=== PATIENT | female | born 1995 | race Caucasian/White ===

== ENCOUNTER 2018-09-11 09:51 | Emergency (ER) | payer BC ==
[~2018-09-11] VITALS: Ht 172.7 cm; Wt 96.6 kg
[2018-09-11 09:54] VITALS: Ht 172.7 cm; Wt 96.6 kg
[2018-09-11] MEDS ORDERED: DIPHENHYDRAMINE 50 MG INJ IV STA (12:17)
[2018-09-11] MEDS ORDERED: METOCLOPRAMIDE 10 MG INJ IV STA (12:17)
[2018-09-11] MEDS ORDERED: KETOROLAC 30 MG INJ IV STA (12:17)
[2018-09-11] MEDS ORDERED: SOD CHLORIDE 0.9% 1,000 ML IV STA (12:17)
[2018-09-11] MEDS ORDERED: BUTA1CAP38 PO (13:58)
[2018-09-11] MEDS ORDERED: ACET500C5 PO (13:58)
[2018-09-11] MEDS ORDERED: ONDA4TAB14 PO (13:58)
[2018-09-11] MEDS ORDERED: IBUP800T48 PO (13:58)
--- NOTE | 2018-09-11 14:19 | ERD ---
ER Documentation Chief Complaint Chief Complaint MIGRAINE HEADACHE X 4 DAYS HPI This is a 23-year-old female patient who presents to the emergency room with new onset migraine. +Photophobia, + phonophobia, +nausea, throbbing pain starts at bilateral temples and radiates to the top of the head. States she had ear s urgery on left ear on July 07, 2018 and 2 days ago was at her ENT who did some work on her ear which may have provoked migraine. No sick contacts, no recent travel or prolonged immobilization,+nexplanon, nonsmoker. Clear speech, cooperative, moves extremities equally without weakness. ROS All systems reviewed and are negative except as per history of present illness. Medications Home Meds Active Scripts Ncgkbcrcxi-Wkovullgzfuma-Fqgibeik* (Fioricet*) 50-300-40 Mg Capsule, 1 CAP PO Q4H PRN for MIGRAINE for 7 Days, #14 CAP Prov:BELKIS GOINS NP 09/11/18 Ondansetron (Ondansetron Odt) 4 Mg Tab.rapdis, 4 MG PO Q6H PRN for NAUSEA AND/OR VOMITING, #10 TAB Prov:BELKIS GOINS NP 09/11/18 Acetaminophen* (Tylophen*) 500 Mg Capsule, 2 CAP PO Q8H PRN for PAIN AND OR ELEVATED TEMP, #20 CAP Prov:BELKIS GOINS NP 09/11/18 Ibuprofen* (Motrin*) 800 Mg Tab, 800 MG PO Q6, #30 TAB Prov:BELKIS GOINS NP 09/11/18 Allergies Allergies: Coded Allergies: cefaclor (Verified Allergy, Intermediate, 09/11/18) PMhx/Soc History of Surgery: No Anesthesia Reaction: No Hx Neurological Disorder: No Hx Respiratory Disorders: No Hx Cardiac Disorders: No Hx Psychiatric Problems: No Hx Miscellaneous Medical Probl: Yes (MIGRAINE) Hx Alcohol Use: No Hx Substance Use: Yes (MARIJUANA) Hx Tobacco Use: No Physical Exam Vitals Vital Signs Date Temp Pulse Resp B/P (MAP) Pulse Ox O2 O2 Flow FiO2 Time Delivery Rate 09/11/18 98.0 51 16 110/74 100 Room Air 14:24 (86) 09/11/18 97.8 65 18 121/58 100 09:54 (79) Physical Exam Const: No acute distress Head: Atraumatic Eyes: Normal Conjunctiva, PERRL, EOMI ENT: Normal External Ears, Right TM clear, Left TM with dried blood from 12-5 'oclock. No nasal discharge, pharynx pink, moist, no exudate, no petechiae. Neck: Full range of motion. No meningismus. No lymphadenopathy or thyromegaly. Resp: Clear to auscultation bilaterally Cardio: Regular rate and rhythm, no murmurs Abd: Soft, non tender, non distended. Normal bowel sounds Skin: No petechiae or rashes, normothermic Back: No midline or flank tenderness Ext: No cyanosis, or edema Neur: Awake and alert, CNII-XII intact, clear speech, no pronator drift, normal [id number], steady gait Psych: Normal Mood and Affect Results 24 hrs Laboratory Tests Test 09/11/18 12:41 09/11/18 12:48 POC Beta HCG, Qualitative NEGATIVE Bedside Urine pH (LAB) 8.5 Bedside Urine Protein (LAB) Negative Bedside Urine Glucose (UA) Negative Bedside Urine Ketones (LAB) Negative Bedside Urine Blood Negative Bedside Urine Nitrite (LAB) Negative Bedside Urine Leukocyte Esterase (L Negative Current Medications Medications Dose Sig/Dory Start Time Status Last (Trade) Ordered Route PRN Stop Time Admin Dose Reason Admin Sodium 1,000 ml @ Q1H STAT 09/11/18 DC 09/11/18 Chloride 1,000 mls/hr IV 12:17 12:56 09/11/18 13:16 10 mg ONCE STAT 09/11/18 DC 09/11/18 Metoclopramid IV 12:17 12:56 e HCl 09/11/18 12:26 (Reglan) Ketorolac 30 mg ONCE STAT 09/11/18 DC 09/11/18 Tromethamine IV 12:17 12:56 (Toradol) 09/11/18 12:26 25 mg ONCE STAT 09/11/18 DC 09/11/18 Diphenhydrami IV 12:17 12:56 ne HCl 09/11/18 12:26 (Benadryl) Procedures/MDM This is a 23-year-old female patient who presents to the emergency room with complaint of migraine headache. ED COURSE: The patient was stable throughout ED course. DIAGNOSTIC IMAGING: Not indicated, no neuro deficits PROCEDURES: None. MEDICATIONS GIVEN: NS, Toradol, Reglan, Benadryl Patient tolerated medication well with no adverse reactions. Patient reported improvement in pain, nausea, resolution of photophobia. MDM: The patient was well-appearing with VSS and without neurological deficits at time of reevaluation and discharge. Clinical and diagnostic exam not suggestive of infection, intracranial process, SAH, SDH, neoplasm, meningitis, encephalitis, aneurysm, thrombus, temporal arteritis, sinusitis. The patient has been provided with instructions on self-care including use of analgesia, reducing triggers, and need for close follow-up with primary care physician within 1-2 days for reevaluation. The patient has been instructed to return immediately for worsening symptoms, change in pattern of current symptoms, or other acute problems. DISPOSITION: The patient has been discharge home to follow-up with community physician. Departure Diagnosis: Primary Impression: Migraine headache Migraine type: without aura Status migrainosus presence: without status migrainosus Intractability: not intractable Qualified Codes: G43.009 - Migraine without aura, not intractable, without status migrainosus Condition: Stable Patient Instructions: Migraine Headache: Stages and Treatment Referrals: [facility] YOU HAVE RECEIVED A MEDICAL SCREENING EXAM AND THE RESULTS INDICATE THAT YOU DO NOT HAVE A CONDITION THAT REQUIRES URGENT TREATMENT IN THE EMERGENCY DEPARTMENT. FURTHER EVALUATION AND TREATMENT OF YOUR CONDITION CAN WAIT UNTIL YOU ARE SEEN IN YOUR DOCTORS OFFICE WITHIN THE NEXT 1-2 DAYS. IT IS YOUR RESPONSIBILITY TO MAKE AN APPOINTMENT FOR FOLOW-UP CARE. IF YOU HAVE A PRIMARY DOCTOR --you should call your primary doctor and schedule an appointment IF YOU DO NOT HAVE A PRIMARY DOCTOR YOU CAN CALL OUR PHYSICIAN REFERRAL HOTLINE AT IF YOU CAN NOT AFFORD TO SEE A PHYSICIAN YOU CAN CHOSE FROM THE FOLLOWING [facility] [address] [facility] [place] [address] [facility]. [facility] [address] [facility] [address] [facility] [address] [facility]. [facility]. [address] Additional Instructions: Thank you very much for allowing us to participate in your care. Your health and safety is our top priority at [facility]. Call your primary care doctor TOMORROW for an appointment during the next 2-4 days and bring all the information and medications prescribed. Have prescriptions filled and follow precisely the directions on the label. If the symptoms get worse and your provider is unavailable, return to the Emergency Department immediately. INCREASE HYDRATION TO 1-2 L/DAY, AVOID HEADACHE TRIGGERS SUCH SMOKE, STRESS, ALCOHOL USE IBUPROFEN AND TYLENOL FIRST CHOICE FOR HEADACHE, USE IMMITREX AT ONSET OF HEADACHE, USE FIORICET IF INTERVENTIONS DO NOT WORK- USE CAUTION, FIORICET WILL MAKE YOU DROWSY USE ZOFRAN FOR NAUSEA FOLLOW-UP WITH YOUR DOCTOR TO DISCUSS THIS PLAN OF CARE RETURN TO THE ER IMMEDIATELY WITH WORSENING OR CHANING SYMPTOMS INCLUDING PROJECTILE VOMITING, FEVER, VISUAL DISTURBANCE BELKIS GOINS NP September 11, 2018 14:19
[2018-09-11 14:24] VITALS: BP 110/74; PULSE 51; RESP 16
== END 2018-09-11 14:26 | disposition home or self-care (01) ==
LOC: FTE 09:51
DX: G43.009 Migraine without aura, not intractable, without status migrainosus (principal)
CPT/HCPCS: 81003; 81025; 96374; 96375; 99284; J1200; J1885; J2765; J7030